=== PATIENT | male | born 1965 | race Two or more races ===

== ENCOUNTER 2023-09-03 17:26 | Emergency (ER) | payer OTHER ==
[~2023-09-03] VITALS: Ht 170.2 cm; Wt 70.3 kg
[2023-09-03] MEDS ORDERED: LIPITOR40 M1 (18:13)
[2023-09-03] MEDS ORDERED: CLINDAMYCIN PHOSPHATE 150 MG/ML (600mg) IM STA (18:52)
[2023-09-03] MEDS ORDERED: CLEOCIN HCL300 MG PO (19:21)
== END 2023-09-03 19:26 | disposition home or self-care (01) ==
LOC: ER 17:27
DX: L03.113 Cellulitis of right upper limb (principal)